=== PATIENT | female | born 2000 | race Hispanic/Latino ===

== ENCOUNTER 2022-07-16 10:22 | Emergency (ER) | payer OTHER ==
[~2022-07-16] VITALS: Ht 154.9 cm; Wt 52.2 kg
[~2022-07-16 10:22] MED LIST: ACCUNEB0.63 MG/3; BACTRIM; PROAIR HFA INH8.5 GM
== END 2022-07-16 11:28 | disposition home or self-care (01) ==
LOC: ER 10:29
DX: G51.0 Bell's palsy (principal)
CPT/HCPCS: 99282